=== PATIENT | male | born 1945 | race Caucasian/White ===

== ENCOUNTER → 2020-04-25 | Outpatient (CLI) | payer MEDICARE, OTHER ==
--- NOTE | 2020-04-26 11:02 | CT ---
EXAM DESCRIPTION: Abdomen w/wo Contrast: Computed Tomography. CLINICAL HISTORY: RENAL CYST COMPARISON: Thyroid ultrasound November 16. TECHNIQUE: Spiral-axial scans at 5 mm and 2.5 mm intervals, from the diaphragms through the upper pelvis, before and after nonionic IV contrast. No oral contrast. Coronal and sagittal 2.0 mm reconstructions. 2 mm Delayed scans, liver through the upper pelvis. No adverse reactions. DLP 1955 mGy-cm. This exam was performed according to our departmental CT dose-optimization program which includes automated exposure control, adjustment of the mA and/or kV according to patient size and/or use of iterative reconstruction technique; to reduce radiation dose to as low as reasonably achievable (ALARA). FINDINGS: Kidneys and Ureters: Low-density nonenhancing structure measuring 4.3 x 2.7 cm in the coronal plane and 2.4 cm AP axis, located in the anterior mid cortex of the left kidney. Hounsfield density ranges from plus 11.5-15.5, with or without IV contrast. Calcifications in the periphery. Circumscribed and lobulated margin but no adjacent fatty stranding or fascial thickening. Mass effect on the upper collecting system as it courses to the renal pelvis. No stones in the left kidney or hydronephrosis. Right kidney is unremarkable. Physiologic stranding in the perirenal bases bilaterally. Proximal and mid ureters negative findings. Lung bases and pleura: Negative coronary artery calcifications. Liver, stomach, adrenal glands, and spleen: Small hiatal hernia. Heterogeneous fatty density in the liver with heterogeneous enhancement but no focal lesions. Long axis right lobe is 18.8 cm. Other solid organs are negative. Pancreas/Gallbladder/Ducts: Gallbladder visualized. Pancreas and duct negative. Mesentery: No fatty stranding or fascial thickening. No free air or free fluid. Aorta: Moderate atherosclerotic calcification including the major branch vessels with narrowing of the mid and distal lumen. Small Bowel: Minimal gas and fluid in the included segments. No distention. Terminal Ileum/Cecum: Normal caliber and slightly mobile located anterior mid right abdomen, abutting the anterior abdominal wall, anterior to the lower right kidney. Appendix Not seen. Colon: Mild constipation of the included segments. No significant air-fluid levels. Spine: Anterolisthesis and spondylosis L4-L5 with possible bilateral foraminal stenosis. Abdominal Wall/Back Soft Tissues: Minimal diastases of the umbilicus. IMPRESSION: 1. Lobulated cystic structure with peripheral calcifications in the left kidney, maximum diameter 4.3 cm. No comparison studies. Bosniak type II cysts with no follow-up recommended. Remainder of the left kidney and the right kidney with negative findings. 2. Steatosis of the liver with mild enlargement but no focal lesions. No ascites. Smooth capsule. Small hiatal hernia. 3. Spondylosis and anterolisthesis at L4-L5 with possible bilateral foraminal stenosis. Correlate for bilateral L4 and L5 radiculopathy. Moderate aortic narrowing and atherosclerotic disease mid and distal segments. Electronically signed by: Hans Hay MD 04/26/2020 11:00 AM CDT
== END ==
LOC: CT 09:16
PROVIDERS: ATTEND Urology
DX: Z01.812 Encounter for preprocedural laboratory examination (principal); N28.1 Cyst of kidney, acquired